=== PATIENT | male | born 1980 ===

== ENCOUNTER 2017-11-07 10:01 | Emergency (ER) | payer SELFPAY ==
[2017-11-07 10:18] VITALS: BP 126/85; PULSE 62; RESP 16; TEMP 98.2; O2SAT 98
--- NOTE | 2017-11-07 11:05 | C.PDOC ---
History Of Present Illness 37 y/o male presents to ED with c/o low back pain developed after heavy lifting while at work. Patient states he wears weightlifting belt and denies numbness, weakness, bowel/bladder incontinence, nausea, vomiting or any other complaints at this time. Time Seen by Provider: 11/07/17 10:24 Chief Complaint (Nursing): Back Pain History Per: Patient History/Exam Limitations: no limitations Onset/Duration Of Symptoms: Days Current Symptoms Are (Timing): Still Present Quality Of Discomfort: "Pain" Past Medical History Reviewed: Historical Data, Nursing Documentation, Vital Signs Vital Signs: Last Vital Signs Temp 98.2 F 11/07/17 10:16 Pulse 62 11/07/17 10:16 Resp 16 11/07/17 10:16 BP 126/85 11/07/17 10:16 Pulse Ox 98 11/07/17 11:05 - Medical History PMH: No Chronic Diseases Surgical History: No Surg Hx Family History: States: No Known Family Hx - Social History Hx Alcohol Use: No Hx Substance Use: No - Immunization History Hx Tetanus Toxoid Vaccination: No Hx Influenza Vaccination: No Hx Pneumococcal Vaccination: No Review Of Systems Constitutional: Negative for: Fever, Chills Gastrointestinal: Negative for: Nausea, Vomiting Genitourinary: Negative for: Dysuria, Hematuria Musculoskeletal: Positive for: Back Pain Skin: Negative for: Rash Neurological: Negative for: Weakness, Numbness Physical Exam - Physical Exam Appears: Non-toxic, No Acute Distress Skin: Warm, Dry, No Rash Head: Atraumatic, Normacephalic Oral Mucosa: Moist Neck: Normal ROM, Supple Cardiovascular: Rhythm Regular Respiratory: Normal Breath Sounds, No Rales, No Rhonchi, No Wheezing Gastrointestinal/Abdominal: Soft, No Tenderness, No Guarding, No Rebound Back: No CVA Tenderness, No Paraspinal Tenderness, Other (tenderness to iliac sacral area bilaterally) Neurological/Psych: Oriented x3, Normal Motor, Normal Sensation ED Course And Treatment O2 Sat by Pulse Oximetry: 98 (RA) Pulse Ox Interpretation: Normal Medical Decision Making Medical Decision Making: low back muscle strain, 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 No chikis octavio caliente, no pone parches encima de la espalda No levanta nada pesada por 1 semana Sigue en la [facility] (gratis) mamie necessario. Instructions: Lumbar Muscle Strain (DC) Forms: [employer] (Togolese) Print Language: MOZAMBICAN - Clinical Impression Clinical Impression: Low back strain - Scribe Statement The provider has reviewed the documentation as recorded by the Scribjamaica Shepard All medical record entries made by the Scribe were at my direction and personally dictated by me. I have reviewed the chart and agree that the record accurately reflects my personal performance of the history, physical exam, medical decision making, and the department course for this patient. I have also personally directed, reviewed, and agree with the discharge instructions and disposition.
== END 2017-11-07 11:24 | disposition home or self-care (01) ==
LOC: C.ER 10:01
DX: S39.012A Strain of muscle, fascia and tendon of lower back, initial encounter (principal); X50.0XXA Overexertion from strenuous movement or load, initial encounter; Y92.89 Other specified places as the place of occurrence of the external cause; Y99.0 Civilian activity done for income or pay
CPT/HCPCS: 96372; 99284; J1885